=== PATIENT | female | born 1960 | race African-American/Black ===

== ENCOUNTER 2017-09-08 10:15 | Emergency (ER) | payer BC ==
[2017-09-08 10:24] VITALS: BP 141/66; PULSE 90; TEMP 97.8; BMI 31.3
[2017-09-08] MEDS ORDERED: IBUPROFEN 400 MG TABLET (FP) PO ONE ×2 (11:16→11:18)
--- NOTE | 2017-09-08 11:20 | PDOC ---
History of Present Illness - General Chief Complaint: Pain Stated Complaint: EVALUATION Time Seen by Provider: 09/08/17 11:08 History Source: Patient Exam Limitations: No Limitations - History of Present Illness Initial Comments: CHIEF COMPLAINT: 57 y/o female with PMH RA c/o atraumatic left foot pain x 6 days. HISTORY OF PRESENT ILLNESS: The patient states she does not recall dropping anything on her foot or injury but this has happened in the past and she has had hairline fractures. She states it hurts to bear weight. She went to urgent care 2 days ago and they suggested aleve, which she states is not helping. Past History - Past Medical History Allergies/Adverse Reactions: Allergies Allergy/AdvReac Type Severity Reaction Status Date / Time No Known Allergies Allergy Verified 09/08/17 10:24 Home Medications: Ambulatory Orders Bisoprolol 2.5MG/Hctz 6.25MG [Ziac (Nf)] 1 tab PO DAILY 09/08/17 Linaclotide [Linzess] 145 mcg PO DAILY 09/08/17 Methotrexate Sodium [Methotrexate] 2.5 mg PO WEEKLY 09/08/17 Pantoprazole Sodium [Protonix] 40 mg PO DAILY 09/08/17 COPD: No GI Disorders: Yes (IBS,GERD) HTN: Yes Other medical history: RA - Suicide/Smoking/Psychosocial Hx Smoking History: Never smoked Hx Alcohol Use: Yes (OCCASIONALLY) Drug/Substance Use Hx: No Review of Systems - Review of Systems Able to Perform ROS?: Yes Constitutional: No: Symptoms Reported Musculoskeletal: Yes: Joint Pain, Joint Swelling (left foot) *Physical Exam - Vital Signs Last Vital Signs Temp Pulse Resp BP Pulse Ox 97.8 F 90 18 141/66 97 09/08/17 10:21 09/08/17 10:21 09/08/17 10:21 09/08/17 10:21 09/08/17 10:21 - Physical Exam Comments: well appearing ambulatory female with slight limp General Appearance: Yes: Nourished, Appropriately Dressed. No: Apparent Distress Vascular Pulses: Doralis-Pedis (L): 2+ Extremity: positive: Normal Capillary Refill, Normal Range of Motion, Tender ( along 1st metacarpal and first digit. Obvious bunion of first digit which is also TTP. ), Swelling (very minimal swelling to dorsum of left foot), Other (No erythema, warmth or streaking to affected extremity) Medical Decision Making - Medical Decision Making A/P: 57 y/o with atraumatic left foot pain that has been non responsive to Aleve and ice. Plan is as follows: 1. Xray left foot 2. PO ibuprofen Xray left foot IMPRESSION: No acute fracture Gave the patient her results. Suggested Ibuprofen and RICE instructions. WIll provide with an podiatry referral as well. The patient verbalizes understanding of all instructions, has no further questions and is awaiting discharge. *DC/Admit/Observation/Transfer Diagnosis at time of Disposition: Foot pain, left - Discharge Dispostion Disposition: HOME Condition at time of disposition: Good - Referrals Referrals: ON STAFF,NOT [Primary Care Provider] - Scot Greene MD [Staff Physician] - Call tomorrow - Patient Instructions Printed Discharge Instructions: DI for Foot Pain, How To Perform RICE (Rest, Ice, Compress, Elevate) Additional Instructions: Discharge Instructions: -The xray of your foot showed no broken bones -Take 800mg of ibuprofen 3 times per day with food for pain -Follow RICE instructions -FOllow up with Dr. Greene (business solutions analyst) within 2 weeks -Return to the ER with any worsening or concerning symptoms - Post Discharge Activity
== END 2017-09-08 12:00 | disposition home or self-care (01) ==
LOC: JERFT 10:15
DX: M79.672 Pain in left foot (principal)
CPT/HCPCS: 73630-TC-LT; 99281-25

== ENCOUNTER 2024-11-19 10:53 | Observation (INO) | payer BC, OTHER ==
[2024-11-19] MEDS: SODIUM CHLORIDE 0.9% 1000 ML INFUS.BAG IV STA (12:21)
[2024-11-19 12:37] LABS: VENOUS BASE EXCESS -3.1 mmol/L (-2-2); VENOUS O2 SATURATION 53.8 % (70-80); VENOUS PCO2 40.4 mmHg (38-52); VENOUS PH 7.357 (7.310-7.410)
[2024-11-19 12:39] LABS: ABSOLUTE IMMATURE GRANULOCYTES 0.01 x10^3/uL (0.0-0.031); BASOPHILS # 0.04 x10^3/uL (0.01-0.08); EOSINOPHIL % 2.7 % (0.7-5.8); EOSINOPHILS # 0.16 x10^3/uL (0.04-0.36); HEMATOCRIT 36.6 % (34.1-44.9); HEMOGLOBIN 11.6 g/dL (11.2-15.7); MCHC 31.7 g/dl (32.2-35.5); MEAN CELL VOLUME 90.4 fl (79.4-94.8); MEAN PLT VOLUME 11.5 fl (9.4-12.3); MONOCYTE # 0.64 x10^3/uL (0.24-0.86); MONOCYTE % 10.8 % (4.7-12.5); PLATELET COUNT 244 x10^3/uL (182-369); RDW 14.4 % (12.4-16.4)
[2024-11-19 12:44] LABS: PH,URINE 5.5 (5.0-8.0); URINE APPEARANCE CLEAR; URINE BILIRUBIN NEGATIVE (NEGATIVE); URINE COLOR YELLOW; URINE GLUCOSE (UA) NEGATIVE (NEGATIVE); URINE KETONE NEGATIVE (NEGATIVE); URINE LEUK ESTERASE NEGATIVE (NEGATIVE); URINE NITRITE NEGATIVE (NEGATIVE); URINE PROTEIN TRACE (NEGATIVE); URINE UROBILINOGEN 0.2 mg/dL (0.2-1.0)
[2024-11-19 12:45] LABS: INR 1.08 (0.83-1.09); PROTHROMBIN TIME (PATIENT) 11.9 SEC (9.7-13.0)
[2024-11-19 12:48] LABS: ACTIVATED PTT 24.8 SECONDS (25.2-36.5)
[2024-11-19 13:04] LABS: CALCIUM 9.9 mg/dL (8.5-10.1)
[2024-11-19 13:05] LABS: ALBUMIN 3.9 g/dl (3.4-5.0); BLOOD UREA NITROGEN 16.8 mg/dL (7-18)
[2024-11-19 13:08] LABS: CREATININE 1.1 mg/dL (0.55-1.3)
[2024-11-19 13:09] LABS: BILIRUBIN,TOTAL 0.6 mg/dL (0.2-1); TOT PROT 7.6 g/dl (6.4-8.2)
[2024-11-19] MEDS ORDERED: metoPROLOL SUCCINATE 25 MG TAB.SR.24H (FP) PO ONE (16:19)
[2024-11-19] MEDS ORDERED: METOPROLOL TARTRATE 5 MG/5 ML VIAL ONE (16:20)
[2024-11-19] MEDS: METOPROLOL TARTRATE 5 MG/5 ML VIAL IVPUSH ONE (16:30)
[2024-11-19] MEDS: METOPROLOL TARTRATE 25 MG TABLET (FP) PO ONE ×2 (16:31→20:00)
[2024-11-19] MEDS ORDERED: LORazepam 0.5 MG TABLET PO PRN (17:28)
[2024-11-19] MEDS ORDERED: METOPROLOL TARTRATE 25 MG TABLET (FP) ONE (19:57)
[2024-11-19 20:59] VITALS: BMI 27.6
[2024-11-19] MEDS: GABAPENTIN 100 MG CAPSULE PO SCH (21:14)
[2024-11-19] MEDS: APIXABAN 5 MG TABLET PO SCH (21:14)
[2024-11-19] MEDS ORDERED: METOPROLOL TARTRATE 25 MG TABLET (FP) PO SCH (22:00)
[2024-11-20 07:12] LABS: ABSOLUTE IMMATURE GRANULOCYTES 0.02 x10^3/uL (0.0-0.031); BASOPHILS # 0.03 x10^3/uL (0.01-0.08); EOSINOPHIL % 3.2 % (0.7-5.8); EOSINOPHILS # 0.24 x10^3/uL (0.04-0.36); HEMOGLOBIN 9.9 g/dL (11.2-15.7); MCHC 31.9 g/dl (32.2-35.5); MEAN CELL VOLUME 89.9 fl (79.4-94.8); MEAN PLT VOLUME 11.7 fl (9.4-12.3); MONOCYTE # 0.73 x10^3/uL (0.24-0.86); MONOCYTE % 9.6 % (4.7-12.5); PLATELET COUNT 199 x10^3/uL (182-369); RDW 14.6 % (12.4-16.4)
[2024-11-20 07:42] LABS: POTASSIUM 4.1 mmol/L (3.5-5.1)
[2024-11-20 07:57] LABS: CALCIUM 9.3 mg/dL (8.5-10.1)
[2024-11-20 07:59] LABS: BLOOD UREA NITROGEN 13.4 mg/dL (7-18)
[2024-11-20] MEDS: PANTOPRAZOLE 40 MG TABLET PO SCH (11:15)
[2024-11-20] MEDS: FOLIC ACID 1 MG TABLET (FP) PO SCH (11:15)
[2024-11-20] MEDS: METOPROLOL TARTRATE 50 MG TABLET (FP) PO SCH (11:15)
[2024-11-20 15:29] VITALS: BP 106/67; PULSE 85; RESP 20; TEMP 98.6
== END 2024-11-20 17:41 | disposition home or self-care (01) ==
LOC: JER 10:53 → INTOOBSV 12:19 → UNDOADMOB 12:19 → JERBED 12:19 → J4W 20:49 → JERBED 20:49 → J4W 20:49 → UNDODISOB 11-20 17:41
PROVIDERS: ADMIT Internal Medicine; ATTEND Internal Medicine
PROC: 3E033GC Introduction of Other Therapeutic Substance into Peripheral Vein, Percutaneous Approach (ICD-10-PCS; principal; 2024-11-19)
DX: I48.91 Unspecified atrial fibrillation (principal); E78.5 Hyperlipidemia, unspecified; I10 Essential (primary) hypertension; M06.9 Rheumatoid arthritis, unspecified; E11.9 Type 2 diabetes mellitus without complications; Z90.79 Acquired absence of other genital organ(s)
CPT/HCPCS: 0241U-QW; 36415; 71045-TC-FY; 71275-TC; 80048; 80053; 81003; 82803; 83605; 84443; 84484; 85025; 85610; 85730; 86850; 86900; 86901; 87040; 87086; 93005; 93010; 96374; 99291; G0378; Q9967